=== PATIENT | male | born 1960 | race Caucasian/White ===

== ENCOUNTER → 2019-09-17 | Outpatient (CLI) | payer BC, OTHER ==
[2016-07-18 10:30] VITALS: BP 130/81
[~2019-09-17] MED LIST: ASPI81TA50 PO; ATOR10TA PO; NAPR500T8 PO
--- NOTE | 2019-09-17 13:28 | CARD ---
MR#: [id number] Date of Study: 09/17/2019 Ordering Physician: WALT OCONNELL, Referring Physician: WALT OCONNELL, Tech: Olivia Kenyon RDCS APPROVED REPORT EXAM: Two-dimensional and M-mode echocardiogram with Doppler and color Doppler. Other Information Quality : AverageHR: 60bpm Rhythm : NSR INDICATION Bicuspid Aortic Valve 2D DIMENSIONS RVDd3.0 (2.9-3.5cm)Left Atrium(2D)2.9 (1.6-4.0cm) IVSd1.0 (0.7-1.1cm)Aortic Root(2D)3.4 (2.0-3.7cm) LVDd5.8 (3.9-5.9cm)LVOT Diameter2.1 (1.8-2.4cm) PWd1.0 (0.7-1.1cm)LVDs3.7 (2.5-4.0cm) FS (%) 35.5 %SV106.1 ml LVEF(%)64.2 (>50%) M-Mode DIMENSIONS Left Atrium(MM)3.21 (2.5-4.0cm)Aortic Root3.58 (2.2-3.7cm) Aortic Valve AoV Peak Alex.142.2cm/sAoV VTI31.4cm AO Peak GR.8.1mmHgLVOT Peak Alex.116.4cm/s LVOT VTI 21.96cmAO Mean GR.4mmHg ROSINA (VMAX)2.39jd7FKD (VTI)2.46cm2 Mitral Valve MV E Kifhwzoa41.3cm/sMV DECEL LCPN498ev MV A Qznxdshq48.6cm/sE/A Ratio1.1 Pulmonary Valve PV Peak Qevtjlpu23.7cm/sPV Peak Grad.2mmHg Tricuspid Valve TR P. Axmerppy919jh/sRAP EDDOHWAT5nuLg TR Peak Gr.71eiFqCGBT39hbCm Pulmonary Vein S1 Jflhdxig11.2cm/sD2 Xwcuezot84.2cm/s LEFT VENTRICLE The Left Ventricle is borderline dilated. There is normal left ventricular wall thickness. The left v entricular systolic function is normal and the ejection fraction is within normal range. The Ejection Fraction is 60-65%. There is normal LV segmental wall motion. Transmitral Doppler flow pattern is Gr sera I-abnormal relaxation pattern. RIGHT VENTRICLE The right ventricle is normal size. There is normal right ventricular wall thickness. The right ventr icular systolic function is normal. ATRIA The left atrium size is normal. The right atrium size is normal. The interatrial septum is intact wit h no evidence for an atrial septal defect or patent foramen ovale as noted on 2-D or Doppler imaging. AORTIC VALVE The aortic valve is normal in structure and function. The aortic valve is trileaflet. Doppler and Col or Flow revealed no significant aortic regurgitation. There is no significant aortic valvular stenosi s. There is no aortic valvular vegetation. MITRAL VALVE The mitral valve is normal in structure and function. There is no evidence of mitral valve prolapse. There is no mitral valve stenosis. Doppler and Color-flow revealed trace mitral regurgitation. TRICUSPID VALVE The tricuspid valve is normal in structure and function. Doppler and Color Flow revealed trace tricus pid regurgitation. The PA pressure was estimated at 31 mmHg. There is no tricuspid valve prolapse or vegetation. There is no tricuspid valve stenosis. PULMONIC VALVE The pulmonic valve is not well visualized. GREAT VESSELS The aortic root is normal in size. The ascending aorta is normal in size. The IVC is normal in size a nd collapses >50% with inspiration. PERICARDIAL EFFUSION There is no evidence of significant pericardial effusion. Critical Notification Critical Value: No <Conclusion> The left ventricular systolic function is normal and the ejection fraction is within normal range. Th e Ejection Fraction is 60-65%. There is normal LV segmental wall motion. Signed by : Walt Oconnell, Electronically Approved : 09/17/2019 13:27:29
== END | disposition home or self-care (01) ==
LOC: ECHO 12:35
PROVIDERS: ATTEND Internal Medicine Cardiovascular Disease
DX: Q23.1 Congenital insufficiency of aortic valve (principal)
CPT/HCPCS: 93306

== ENCOUNTER → 2021-11-16 | Outpatient (CLI) | payer BC ==
[2016-07-18 10:30] VITALS: BP 130/81
--- NOTE | 2021-11-17 16:34 | CARD ---
MR#: [id number] Date of Study: 11/16/2021 Ordering Physician: WALT CASEY, Referring Physician: WALT CASEY, Tech: Antonina Remy, [facility] APPROVED REPORT EXAM: Two-dimensional and M-mode echocardiogram with Doppler and color Doppler. Other Information Quality : AverageHR: 53bpm INDICATION Aortic Valve Disease Bicuspid Aortic Valve RISK FACTORS Hyperlipidemia 2D DIMENSIONS Left Atrium(2D)3.5 (1.6-4.0cm)IVSd1.0 (0.7-1.1cm) Aortic Root(2D)3.7 (2.0-3.7cm)LVDd5.7 (3.9-5.9cm) LVOT Diameter2.0 (1.8-2.4cm)PWd1.0 (0.7-1.1cm) LVDs3.2 (2.5-4.0cm)FS (%) 44.7 % SV121.9 mlLVEF(%)70.3 (>50%) Aortic Valve AoV Peak Alex.130.7cm/sAoV VTI25.1cm AO Peak GR.6.8mmHgLVOT Peak Alex.87.9cm/s LVOT VTI 19.20cmAO Mean GR.3mmHg ROSINA (VMAX)2.21lh6ACH (VTI)2.50cm2 Mitral Valve MV E Iyfymkjx57.4cm/sMV E Peak Gr.1mmHg MV DECEL [id number] A Jvuztwda17.6cm/s MV E Mean Gr.0mmHgE/A Ratio0.8 Pulmonary Valve PV Peak Iqqszmbg07.2cm/sPV Peak Grad.3mmHg Tricuspid Valve TR P. Eslwzvoq381fo/sRAP KWKBPKUJ0cvEi TR Peak Gr.98seMwODBF81ekWc LEFT VENTRICLE The left ventricle is normal size. There is normal left ventricular wall thickness. The left ventricu lar systolic function is normal and the ejection fraction is within normal range. The Ejection Fracti on is 50-55%. There is normal LV segmental wall motion. Transmitral Doppler flow pattern is Grade II- pseudonormal filling dynamics. RIGHT VENTRICLE The right ventricle is borderline dilated. There is normal right ventricular wall thickness. The righ t ventricular systolic function is normal. ATRIA The left atrium size is normal. The right atrium size is normal. The interatrial septum is intact wit h no evidence for an atrial septal defect or patent foramen ovale as noted on 2-D or Doppler imaging. AORTIC VALVE The aortic valve is normal in structure and function. Doppler and Color Flow revealed trace aortic re gurgitation. There is no significant aortic valvular stenosis. Calculated aortic valve area is 2.7 cm 2 with maximum pressure gradient of 7 mmHg and mean pressure gradient of 3 mmHg. MITRAL VALVE The mitral valve is normal in structure and function. There is no evidence of mitral valve prolapse. There is no mitral valve stenosis. Doppler and Color-flow revealed trace mitral regurgitation. TRICUSPID VALVE The tricuspid valve is normal in structure and function. Doppler and Color Flow revealed trace tricus pid regurgitation with an estimated PAP of 31 mmHg. There is no tricuspid valve stenosis. PULMONIC VALVE The pulmonic valve is not well visualized. Doppler and Color Flow revealed trace pulmonic valvular re gurgitation. There is no pulmonic valvular stenosis. GREAT VESSELS The aortic root is normal in size. The ascending aorta is normal in size. The IVC is normal in size a nd collapses >50% with inspiration. PERICARDIAL EFFUSION There is no evidence of significant pericardial effusion. Critical Notification Critical Value: No <Conclusion> The left ventricular systolic function is normal and the ejection fraction is within normal range. Th e Ejection Fraction is 50-55%. There is normal LV segmental wall motion. Signed by : Walt Casey, Electronically Approved : 11/17/2021 16:33:59
== END ==
LOC: ECHO 14:53
PROVIDERS: ATTEND Internal Medicine Cardiovascular Disease
DX: Q23.1 Congenital insufficiency of aortic valve (principal)
CPT/HCPCS: 93306